=== PATIENT | male | born 1995 | race American Indian/Alaskan Native ===

== ENCOUNTER 2017-09-09 16:20 | Emergency (ER) | payer MEDICAID ==
[2017-09-09 16:21] VITALS: BMI 23.6
[2017-09-09 16:34] VITALS: BP 121/60; PULSE 67; RESP 16; TEMP 98.9; O2SAT 99
--- NOTE | 2017-09-09 16:59 | ED PDOC ---
HPI: General Adult Time Seen by Provider: 09/09/17 16:50 Chief Complaint (Nursing): Abnormal Skin Integrity Chief Complaint (Provider): Right armpit swelling History Per: Patient History/Exam Limitations: no limitations Onset/Duration Of Symptoms: Days Current Symptoms Are (Timing): Still Present Additional Complaint(s): 22 year old male presented to ED complaining of swelling in the right armpit and left side of wrist which began after sitting in the hot tub. Patient reports a similar thing happened a few weeks ago but [place] [facility] [place] a medication and noticed an improvement of symptoms. Denies fevers and chills. PCP: none provided Past Medical History Reviewed: Historical Data, Nursing Documentation Vital Signs: Last Vital Signs Temp 98.9 F 09/09/17 16:32 Pulse 67 09/09/17 16:32 Resp 16 09/09/17 16:32 BP 121/60 09/09/17 16:32 Pulse Ox 99 09/09/17 17:10 - Medical History PMH: No Chronic Diseases - Surgical History Surgical History: No Surg Hx - Family History Family History: States: Unknown Family Hx - Social History Current smoker - smoking cessation education provided: Yes (>10 cigarettes daily ) Alcohol: None - Immunization History Hx Tetanus Toxoid Vaccination: No Hx Influenza Vaccination: No Hx Pneumococcal Vaccination: No - Home Medications Home Medications: Ambulatory Orders Medication Instructions Recorded Acyclovir [Zovirax] 400 mg PO TID #21 tab 07/27/17 Cephalexin [cephalexin] 500 mg PO Q6 #28 cap 07/30/17 Ibuprofen [Motrin] 600 mg PO Q6 PRN #20 tab 07/30/17 Sulfamethoxazole/Trimethoprim 1 tab PO BID #14 tab 09/09/17 [Bactrim DS 800 mg-160 mg] - Allergies Allergies/Adverse Reactions: Allergies Allergy/AdvReac Type Severity Reaction Status Date / Time No Known Allergies Allergy Verified 07/30/17 10:45 Review of Systems ROS Statement: Except As Marked, All Systems Reviewed And Found Negative Constitutional: Negative for: Fever, Chills Musculoskeletal: Positive for: Other (swelling of right armpit and right side of wrist) Physical Exam - Reviewed Nursing Documentation Reviewed: Yes Vital Signs Reviewed: Yes - Physical Exam Appears: Positive for: Non-toxic, No Acute Distress Head Exam: Positive for: ATRAUMATIC, NORMAL INSPECTION, NORMOCEPHALIC Skin: Positive for: Normal Color, Warm, Dry Eye Exam: Positive for: Normal appearance Neck: Positive for: Normal, Painless ROM Neurologic/Psych: Positive for: Alert, Oriented Comments: Left axilla: 2 cm indurated mass, (-) surrounding erythema Left wrist: 1 cm swelling noted (+) mild erythema - ECG O2 Sat by Pulse Oximetry: 99 (RA) Medical Decision Making Medical Decision Making: Initial impression: abscess Initial plan: Patient advised warm soaks and to return in 2 days for incision and drainage. Patient is stable for discharge and will be prescribed bactrim. Scribe Attestation: Documented by Hu Ferrer acting as a scribe for Abe DUMONT. Provider Scribe Attestation: All medical record entries made by the Scribe were at my direction and personally dictated by me. I have reviewed the chart and agree that the record accurately reflects my personal performance of the history, physical exam, medical decision making, and the department course for this patient. I have also personally directed, reviewed, and agree with the discharge instructions and disposition. Disposition - Clinical Impression Clinical Impression: Abscess - Patient ED Disposition Is Patient to be Admitted: No - Disposition Disposition: Routine/Home Disposition Time: 16:53 Condition: FAIR Additional Instructions: return in 2 days for I & D Prescriptions: Sulfamethoxazole/Trimethoprim [Bactrim DS 800 mg-160 mg] 1 tab PO BID #14 tab Instructions: Skin Abscess Forms: [employer] (Polish), [facility] ED School/Work Excuse
== END 2017-09-09 17:07 | disposition home or self-care (01) ==
LOC: H.ER 16:20
DX: L02.414 Cutaneous abscess of left upper limb (principal)

== ENCOUNTER 2017-10-25 19:35 | Emergency (ER) | payer MEDICAID ==
[2017-10-25 19:36] VITALS: BMI 23.6
[2017-10-25 20:10] VITALS: BP 105/64; PULSE 73; RESP 16; TEMP 98.7; O2SAT 99
[2017-10-25] MEDS ORDERED: Tmp-Smz 800 mg-160 mg DS Tab PO STA (20:38)
[2017-10-25] MEDS ORDERED: Naproxen 500 MG TAB PO STA (20:38)
--- NOTE | 2017-10-25 20:47 | ED PDOC ---
HPI: Skin/Bite Injury Time Seen by Provider: 10/25/17 20:13 Chief Complaint (Nursing): Abnormal Skin Integrity Chief Complaint (Provider): Abscess History Per: Patient History/Exam Limitations: no limitations Onset/Duration Of Symptoms: Days (x2) Current Symptoms Are (Timing): Still Present Additional Complaint(s): 22 year old male presents to the ED for evaluation of an abscess to his left armpit that he noticed last night. He notes localized pain and swelling(-) drainage, but denies taking any medication for symptoms prior to arrival. Patient reports he frequently gets boils. Otherwise, (-) fever, (-) chills, (-) trauma to area. No other complaints at present. PMD: Edgar Past Medical History Reviewed: Historical Data, Nursing Documentation, Vital Signs Vital Signs: Last Vital Signs Temp 98.7 F 10/25/17 20:09 Pulse 73 10/25/17 20:09 Resp 16 10/25/17 20:09 BP 105/64 10/25/17 20:09 Pulse Ox 99 10/25/17 21:55 - Medical History PMH: No Chronic Diseases - Surgical History Surgical History: No Surg Hx - Family History Family History: States: Unknown Family Hx - Social History Current smoker - smoking cessation education provided: Yes SMOKER/PACKS PER DAY:: 1 Alcohol: None Drugs: Cannabis - Home Medications Home Medications: Ambulatory Orders Medication Instructions Recorded Acyclovir [Zovirax] 400 mg PO TID #21 tab 07/27/17 Cephalexin [cephalexin] 500 mg PO Q6 #28 cap 07/30/17 Ibuprofen [Motrin] 600 mg PO Q6 PRN #20 tab 07/30/17 Sulfamethoxazole/Trimethoprim 1 tab PO BID #14 tab 09/09/17 [Bactrim DS 800 mg-160 mg] Cephalexin [Keflex] 500 mg PO TID #21 capsule 10/25/17 Ibuprofen [Motrin Tab] 600 mg PO Q6 PRN #24 tab 10/25/17 Sulfamethoxazole/Trimethoprim 1 tab PO BID #14 tab 10/25/17 [Bactrim DS 800 mg-160 mg] - Allergies Allergies/Adverse Reactions: Allergies Allergy/AdvReac Type Severity Reaction Status Date / Time chocolate flavor Allergy SHORTNESS Verified 10/25/17 20:08 OF BREATH diphenhydramine Allergy RASH Verified 10/25/17 20:08 [From Benadryl] Review of Systems ROS Statement: Except As Marked, All Systems Reviewed And Found Negative Constitutional: Negative for: Fever, Chills, Other (trauma) Skin: Positive for: Other (abscess to left armpit with localized pain) Physical Exam - Reviewed Nursing Documentation Reviewed: Yes Vital Signs Reviewed: Yes - Physical Exam Comments: GENERAL APPEARANCE: Patient is awake, alert, oriented x 3, in no acute distress. Resting comfortably. Neck: Supple, FROM ENT: Mucus membranes moist. Airway patent, (-) stridor. Skin: Warm and dry, (+)2cm x 2cm mildly erythematous, tender, indurated, nonfluctuant abscess to the left axilla with no surrounding cellulitis. Remainder of Left Upper Extremity: Full ROM, nontender. Pulmonary: lungs clear to auscultation bilaterally, no rhonchi, no wheezing. Cardiac: regular rate and rhythm Neuro: Mental status as above, gait steady, speech clear (-) focal findings (-) facial asymmetry - ECG O2 Sat by Pulse Oximetry: 99 (RA) Pulse Ox Interpretation: Normal Medical Decision Making Medical Decision Making: Time: 20:38 Initial Impression: early abscess of the axilla Initial Plan: --Bactrim 1 tab PO --Keflex 500 mg PO --Naproxen 500 mg PO --Re-eval 2140 On re-evaluation, patient reports improvement of symptoms. On exam, patient remains AAOx3, in no acute distress. On exam, neck is supple, lungs CTA, cardiac RRR, neuro exam shows no focal findings. VSS, stable for discharge. Warm compresses encouraged. Diagnostic results d/w the patient in great detail. Dx of early abscess of axilla d/w the patient. Based on history, exam and diagnostic results plan will be for discharge and outpatient follow up. Advised to follow up with primary care physician/clinic in 1-2 days without fail. Advised to take medication as prescribed. Return to the emergency room at any time for any new or worsening symptoms. Patient states he fully agrees with and understands discharge instructions. States that he agrees with the plan and disposition. Verbalized and repeated discharge instructions and plan. I have given the patient opportunity to ask any additional questions. Scribe Attestation: Documented by Dunia Agustin, acting as a scribe for Enid Hodgson PA-C. Provider Scribe Attestation: All medical record entries made by the Scribe were at my direction and personally dictated by me. I have reviewed the chart and agree that the record accurately reflects my personal performance of the history, physical exam, medical decision making, and the department course for this patient. I have also personally directed, reviewed, and agree with the discharge instructions and disposition. Disposition - Clinical Impression Clinical Impression: Abscess - Patient ED Disposition Is Patient to be Admitted: No Counseled Patient/Family Regarding: Diagnosis, Need For Followup, Rx Given - Disposition Referrals: Nel Estrella MD [Medical Doctor] - Disposition: Routine/Home Disposition Time: 21:44 Condition: STABLE Additional Instructions: FOLLOW UP WITH CLINIC IN 1-2 DAYS FOR FURTHER EVALUATION. RETURN TO ED WITH ANY NEW OR WORSENING SYMPTOMS Prescriptions: Cephalexin [Keflex] 500 mg PO TID #21 capsule Ibuprofen [Motrin Tab] 600 mg PO Q6 PRN #24 tab PRN Reason: Pain, Moderate (4-7) Sulfamethoxazole/Trimethoprim [Bactrim DS 800 mg-160 mg] 1 tab PO BID #14 tab Instructions: Boil, Skin Abscess Forms: [employer] (Salvadorean), [facility] ED School/Work Excuse Print Language: HEBREW - POA Present On Arrival: None
[2017-10-25] MEDS ORDERED: Naproxen 500 MG TAB PO ONE (20:54)
[2017-10-25] MEDS ORDERED: Tmp-Smz 800 mg-160 mg DS Tab ONE (20:54)
== END 2017-10-25 21:57 | disposition home or self-care (01) ==
LOC: H.ER 19:35
DX: L02.412 Cutaneous abscess of left axilla (principal)